=== PATIENT | male | born 1950 | race Caucasian/White ===

== ENCOUNTER 2020-05-02 11:27 | Outpatient (CLI) | payer MEDICARE, SELFPAY ==
--- NOTE | ~2020-05-02 | XR_ITS ---
EXAMINATION: XR ankle RT 2V DATE: 05/02/2020 11:54 INDICATION: Gout left ankle pain. TECHNIQUE: Anteroposterior and lateral views of the right ankle were obtained. COMPARISON: None. FINDINGS: Alignment is normal. No fracture. Joint spaces are normal. Small Achilles and plantar calcaneal spurs . Diffuse density anterior to the tibiotalar joint line suggesting the presence of a joint effusion. Approximately 6 mm lucency projecting along the medial margin of the medial malleolus which given the history of gout suspicious for an erosion. IMPRESSION: 1. Possible small erosion at the medial malleolus. Correlate for pain/tenderness at this location. 2. Likely right ankle joint effusion. Reviewed, dictated and finalized at location A. HOST IMPRESSION: 1. Possible small erosion at the medial malleolus. Correlate for pain/tendernes s at this location. 2. Likely right ankle joint effusion.
== END 2020-05-02 11:28 | disposition home or self-care (01) ==
LOC: ANHIMG 11:37
PROVIDERS: PCP Internal Medicine; Visit Provider Internal Medicine
DX: M10.9 Gout, unspecified (principal)
CPT/HCPCS: 73600

== ENCOUNTER 2023-01-15 09:53 | Outpatient (CLI) | payer MEDICARE, SELFPAY ==
--- NOTE | ~2023-01-15 | NM_ITS ---
EXAMINATION: NM dena stress w perfusion DATE: 01/15/2023 12:42 INDICATION: Abnormal electrocardiogram. TECHNIQUE: Rest images were obtained following intravenous administration of 9.2 mCi Tc99m tetrofosmi n (Myoview). The patient was infused intravenously with Lexiscan (regadenoson). Then, 28.1 mCi Tc99m tetrofosmin (Myoview) was administered intravenously, and supine and prone stress images were obtaine d. Data was reconstructed into short axis and horizontal and vertical long axis SPECT images. Gated S PECT images were also obtained. COMPARISON: None. FINDINGS: There is a moderate-sized, moderate severity, fixed perfusion defect involving left ventric ular apex, apical septal segment, mid anteroseptal segment, and mid inferoseptal segment, consistent with infarct. No reversible component to suggest ischemia. There is no segmental wall motion abnorma lity. Left ventricular ejection fraction measures >70%. IMPRESSION: 1. Moderate-sized area of moderate severity infarct involving left ventricular apex, apical septal se gment, mid anteroseptal segment, and mid inferoseptal segment. 2. Normal left ventricular ejection fraction measuring >70%. Reviewed, dictated and finalized at location A. IMPRESSION: 1. Moderate-sized area of moderate severity infarct involving left ventricular apex, apical septal segment, mid anteroseptal segment, and mid inferoseptal seg ment. 2. Normal left ventricular ejection fraction measuring >70%.
--- NOTE | 2023-01-15 11:02 | EST_ITS ---
Patient Info Name: Hermilo Delgado Age: 72 years : 1950 Gender: Male Ht: 72 in Wt: 255 lbs BSA: 2.46 m2 HR: 68 bpm BP: 142 / 88 mmHg Heart Rhythm: Left Bundle Branch Block Exam Date: 01/15/2023 11:13 AM Exam Location: [facility] Patient Status: Outpatient Admit Date: 01/15/2023 Staff Ordering Physician: Suzy Lei Attending Provider: Suzy Lei Exercise Technologist: Savi Sifuentes CT Exercise Physician: Garfield Chopra DO Exam Type: CA stress dena w NM Study Info Indications R07.9 - Chest pain, unspecified R94.31 - Abnormal electrocardiogram ECG EKG A regadenoson stress test was performed. Summary 1. 1. Inconclusive lexiscan stress test for ischemic ST changes by ECG criteria due to baseline LBBB. 2. 2. Stable hemodynamics throughout the test. 3. 3. Nuclear scan to follow and will be reported separately. Please correlate with it. 4. 4. Patient informed of the above results. Protocol: Lexiscan Stress ECG Details Stage: REST Duration (min): 1 min : 1 sec HR (bpm): 69 SBP (mmHg): 142 DBP (mmHg): 88 Stage: REST Duration (min): 12 min : 13 sec HR (bpm): 72 SBP (mmHg): 142 DBP (mmHg): 88 Stage: STAGE 1 Duration (min): 0 min : 59 sec HR (bpm): 96 SBP (mmHg): 152 DBP (mmHg): 66 Stage: RECOVERY Duration (min): 1 min : 0 sec HR (bpm): 91 SBP (mmHg): 152 DBP (mmHg): 66 Stage: RECOVERY Duration (min): 2 min : 0 sec HR (bpm): 90 SBP (mmHg): 152 DBP (mmHg): 66 Stage: RECOVERY Duration (min): 3 min : 0 sec HR (bpm): 85 SBP (mmHg): 133 DBP (mmHg): 69 Stage: RECOVERY Duration (min): 3 min : 5 sec HR (bpm): 86 SBP (mmHg): 133 DBP (mmHg): 69 Rest HR: 72 bpm Peak HR: 100 bpm Rest Sys BP: 142 mmHg Peak Sys BP: 152 mmHg Max Pred HR: 149 bpm % Max Pred HR: 67 % Target HR: 127 bpm Max RPP: 15,200 bpm*mmHg Termination Reason: Completed protocol Cardiac Symptoms: Shortness of breath Total Time: 1 min : 0 sec Rest Tuttle BP: 88 mmHg Peak Tuttle BP: 66 mmHg Total Dose: 0.4 mg Resting ECG Sinus rhythm, LBBB. Stress ECG No ST changes. Arrhythmias None. Report Signatures
== END 2023-01-15 09:54 | disposition home or self-care (01) ==
PROVIDERS: PCP Internal Medicine; Visit Provider Clinical Nurse Specialist
DX: R06.02 Shortness of breath (principal); R94.31 Abnormal electrocardiogram [ECG] [EKG]
CPT/HCPCS: 78452; 93017; A9502; J2785

== ENCOUNTER 2023-03-16 15:35 | Outpatient (CLI) | payer MEDICARE, SELFPAY ==
--- NOTE | 2023-03-16 15:41 | ECHO_ITS ---
Patient Info Name: Hermilo Delgado Age: 72 years : 1950 Gender: Male Ht: 72 in Wt: 245 lbs BSA: 2.41 m2 HR: 91 bpm BP: 157 / 93 mmHg Heart Rhythm: Sinus Rhythm Technical Quality: Fair Exam Date: 03/16/2023 3:52 PM Exam Location: [facility] Patient Status: Outpatient Admit Date: 03/16/2023 Staff Ordering Physician: Garfield Chopra DO Youth Director: Angélica Pickett RDCS Attending Provider: Garfield Chopra DO Referring Physician: Nav CAR; Exam Type: CA echo dop color flow w con Study Info Indications I44.7 - Left bundle-branch block, unspecified Complete two-dimensional, color flow and Doppler transthoracic echocardiogram is performed with contrast to opacify the left ventricle and to improve the deliniation of the left ventricle endocardial borders. Contrast/Agitated Saline Contrast/Ag. Saline: Definity Amount: 3.00 ml Administered By: Angélica Pickett RDCS Existing IV Access: No New IV Access: Left Site Condition: IV removed Summary 1. Definity contrast administered improved wall motion interpretation. 2. Left ventricular chamber dimension is normal. 3. Ventricular septum is sigmoid shaped. No LVOT obstruction. 4. Left ventricular systolic function is normal, estimated at 60-65%. 5. There is moderate concentric increased left ventricular wall thickness. 6. Left ventricular septal wall motion is abnormal with septal motion related to bundle branch block. 7. The left ventricular diastolic function is grade I diastolic dysfunction. 8. E/e' 12 is mildly elevated. 9. There is mild aortic valve sclerosis. 10. The mitral valve has moderately calcified annulus. 11. No pulmonary hypertension, estimated pulmonary arterial systolic pressure is 18 mmHg. Left Ventricle Ventricular septum is sigmoid shaped. No LVOT obstruction. E/e' 12 is mildly elevated. Definity contrast administered improved wall motion interpretation. Left ventricular chamber dimension is normal. Left ventricular systolic function is normal, estimated at 60-65%. There is moderate concentric increased left ventricular wall thickness. Left ventricular septal wall motion is abnormal with septal motion related to bundle branch block. The left ventricular diastolic function is grade I diastolic dysfunction. Right Ventricle Right ventricular systolic function is normal and with normal TAPSE 1.9 cm. Right ventricular chamber dimension is normal. Left Atria Left atrial chamber dimension is normal. Right Atria Right atrial chamber dimension is normal. Aortic Valve The aortic valve is trileaflet. There is mild aortic valve sclerosis. There is no aortic valve stenosis. There is no aortic valve regurgitation. Pulmonic Valve There is no pulmonic regurgitation. Mitral Valve The mitral valve has moderately calcified annulus. There is no mitral valve stenosis. There is no mitral valve regurgitation. Tricuspid Valve There is no tricuspid valve regurgitation. No pulmonary hypertension, estimated pulmonary arterial systolic pressure is 18 mmHg. Pericardium/Pleural There is no pericardial effusion. Inferior Vena Cava Normal inferior vena cava with >50% collapse upon inspiration consistent with normal right atrial pressure, 5 mmHg. Aorta The aortic root size at the sinus of Valsalva is normal. Left Ventricular Outflow Tract Name Value Normal
[2023-03-16] MEDS: PERFLUTREN LIPID MICROSPHERES 1.5 ML VIAL DILUTED TO 10 ML TOTAL VOLUME IV PUSH (16:08)
--- NOTE | 2023-03-16 16:09 | IVDEFINITY ---
Prior to administration of IV Definity the patient was educated on the risks and benefits of the imaging enhancing agent including potential adverse side effects. The patient verbalized understanding. Allergies were verified. No exclusion criteria were identified and at least one of the following inclusion criteria were met: 1) physician request, 2) patient technically difficult to image (per the [place] [employer]chocardi[employer] guidelines of two or more segments not discernable within the apical view), or 3) questionable left ventricular function. ?
== END 2023-03-16 15:36 | disposition home or self-care (01) ==
LOC: ANHCARD 15:37
PROVIDERS: PCP Internal Medicine; Visit Provider Internal Medicine Cardiovascular Disease
DX: I44.7 Left bundle-branch block, unspecified (principal); I08.0 Rheumatic disorders of both mitral and aortic valves
CPT/HCPCS: C8929; Q9957

== ENCOUNTER 2024-01-19 09:02 | Outpatient (CLI) | payer MEDICARE, SELFPAY ==
[2024-01-19 19:22] LABS: Basophils Absolute Auto 0.1 K/mm3 (0.0-0.1); Basophils Percent Auto 1.3 % (0.2-1.2); Eosinophils Absolute Auto 0.3 K/mm3 (0-0.3); Hematocrit 50.5 % (42.0-52.0); Hemoglobin 16.4 g/dL (14.0-18.0); Immature Granulocyte Absolute 0.04 K/mm3 (0.00-0.031); Immature Granulocyte Percent A 0.5 % (0-0.5); Lymphocytes Absolute Auto 1.85 K/mm3 (0.9-3.2); Lymphocytes Percent Auto 22.2 % (18.3-44.2); Mean Corpuscular HGB Conc 32.5 g/dl (32-36); Mean Corpuscular Hemoglobin 30.9 pg (26-34); Mean Corpuscular Volume 95.3 fl (80-100); Mean Platelet Volume 9.4 fl (7.4-10.4); Monocytes Absolute Auto 0.9 K/mm3 (0.1-0.6); Monocytes Percent Auto 11.1 % (2.6-8.5); Neutrophils Absolute Auto 5.2 K/mm3 (1.3-6.7); Neutrophils Percent Auto 61.9 % (45.5-73.1); Platelet Count Result 307 k/mm3 (150-375); Red Cell Distribution Width 13.5 % (11.5-14.5); White Blood Count 8.4 K/mm3 (4.5-10.0)
[2024-01-19 20:14] LABS: Alanine Aminotransferase 50 U/L (6-50); Albumin Level 4.7 g/dL (3.5-5.1); Alkaline Phosphatase 50 U/L (38-126); Anion Gap 13 mmol/L (4-12); Aspartate Amino Transferase 62 U/L (17-59); Bilirubin,Total 0.8 mg/dL (0.2-1.3); Blood Urea Nitrogen 15 mg/dL (9-20); Calcium 9.4 mg/dL (8.4-10.2); Carbon Dioxide 29 mmol/L (22-30); Chloride 96 mmol/L (98-107); Cholesterol 206 mg/dL (0-200); Estimated Glomerular Filt Rate > 60; Glucose 93 mg/dL (65-110); HDL Direct 33 mg/dL; Potassium 4.3 mmol/L (3.4-5.0); Sodium 138 mmol/L (137-145); Triglycerides 303 mg/dL (<150)
[2024-01-19 20:25] LABS: LDL Cholesterol Direct 112 mg/dL
== END 2024-01-19 09:03 | disposition home or self-care (01) ==
LOC: ANHGOSHLAB 09:03
PROVIDERS: PCP Internal Medicine; Visit Provider Nurse Practitioner
DX: E78.00 Pure hypercholesterolemia, unspecified (principal); I10 Essential (primary) hypertension
CPT/HCPCS: 36415; 80053; 80061; 85025

== ENCOUNTER 2024-04-05 08:30 | Day surgery (SDC) | payer MEDICARE, SELFPAY ==
[2024-03-10 12:00] VITALS: BMI 34.9
[2024-03-21 11:30] VITALS: BMI 34.7
--- NOTE | 2024-04-04 15:35 | WPDANESEPPF ---
Anes - Initial Pre Proc Eval Procedure: Operation Date: 04/05/24 10:30 Proposed Procedures p Diagnostic Colonoscopy - Denis Reed MD Date/Time: 04/04/24 15:35 Surgeon: Denis Reed MD Pre Op Diagnosis: Positive Cologuard test Patient Data Age: 73 Gender: M Height: 1.83 m Weight: 116 kg Allergies Allergy/AdvReac Type Severity Reaction Status Date / Time cefazolin Allergy Intermediate Hives Verified 04/05/24 09:07 Home Medications Medication Instructions Recorded Confirmed Type betamethasone dipropionate 0.05 % 1 applic topical BID PRN rash #45 12/01/21 04/05/24 Rx topical cream grams aspirin 81 mg tablet,delayed 81 mg PO DAILY 01/04/23 04/05/24 History release ezetimibe 10 mg tablet (Zetia) 10 mg PO DAILY #90 tabs 07/22/23 04/05/24 Rx omega 3-mdu-nig-fish oil 100 2 cap PO DAILY 02/11/24 04/05/24 History mg-160 mg-1,000 mg capsule (Fish Oil) allopurinol 300 mg tablet 300 mg PO DAILY 03/21/24 04/05/24 History cholecalciferol (vitamin D3) 25 25 mcg PO DAILY 03/21/24 04/05/24 History mcg (1,000 unit) tablet (Vitamin D3) losartan 50 mg-hydrochlorothiazide 1 tablet PO DAILY 03/21/24 04/05/24 History 12.5 mg tablet Patient hx anesthesia problems: none Family hx anesthesia problems: none Results Review: All pre-operative results and documents have been reviewed as part of the pre-operative evaluation. [facility] Past Medical History Medical History Acute bronchitis Bone erosion determined by x-ray Broken thumb 02/2021 Elevated PSA Gout HTN (hypertension) Hypercholesterolemia Hyperglycemia Low testosterone Measles Prostate cancer Surgical History Surgical History History of eyelid surgery 10/2021 Family History Family History Father Acute myocardial infarction, Onset Age: 79 Patient's father is in good health Mother , 2017 Family history of chronic obstructive pulmonary disease Patient's mother is in good health Sibling Patient's sister is in good health Social History Social History (Updated 02/11/24 @ 11:14 by Natacha Cerda [facility]) Social History: caffeine-diet coke Smoking status: Never smoker Alcohol intake: current Drinks per week: 1 Alcohol use details: occasional Substance use: never Substance use type: does not use Do You Feel Safe in your Home?: Yes Lack of Transportation: No Lack of Food: Never True Current Housing: I Have Housing Concerned About Future Housing: No Difficulty Paying Gas/Electric Bills: No Difficulty Paying for Meds: No Currently Unemployed: No Education: Don't Know Difficulty w/ Childcare or Family Care: No Living arrangements: alone Spiritual care concerns: No Anes - Eval Final PreProcedure Day of Procedure 04/04/24 15:35 Patient weight: obese Heart: regular rate and rhythm Lungs: clear to auscultation Airway: Mallampati scale class II Neurological: alert and oriented Last oral intake: >/= 8 hours ASA classification: III Emergent: no Anesthetic plan: proceed Anesthesia type and monitoring: general GIVS and standard monitoring Results Review: All pre-operative results and documents have been reviewed as part of the pre-operative evaluation. Informed Consent: The patient's anesthetic plan and its attendant risks and benefits were discussed with the patient/family/POA. Questions were solicited and answers provided to the satisfaction of the patient/family/POA.
[2024-04-05 09:10] VITALS: BP 159/95; PULSE 80; RESP 14; TEMP 36.9; O2SAT 96
[2024-04-05] MEDS: LACTATED RINGERS 1,000 ML 150 ML IV CONT (09:24)
--- NOTE | 2024-04-05 09:52 | PM.HPGS ---
History of Present Illness History of Present Illness Consent: Risks, benefits, and alternatives have been discussed and questions answered. Patient agrees to proceed with procedure. Chief complaint: Positive Cologuard test Narrative: Hermilo Delgado is a 73 year old male presents on referral for colonoscopy. Patient recently had Cologuard test that was positive. Patient reports he had a colonoscopy many years ago was unremarkable. Patient also refer is followed at [facility] for diagnosis of prostate cancer. Apparently this was diagnosed 3 years ago. Has received radiation therapy for has been performed. No old records are available for review. Patient suggest that he has been told that does not have active disease. Patient denies family history of colon cancer nor polyps. Review of Systems Review of Systems: All systems reviewed & are unremarkable except as noted in HPI and below PMFSH Past Medical History Medical History Acute bronchitis Bone erosion determined by x-ray Broken thumb 02/2021 Elevated PSA Gout HTN (hypertension) Hypercholesterolemia Hyperglycemia Low testosterone Measles Prostate cancer Surgical History Surgical History History of eyelid surgery 10/2021 Family History Family History Father Acute myocardial infarction, Onset Age: 79 Patient's father is in good health Mother , 2017 Family history of chronic obstructive pulmonary disease Patient's mother is in good health Sibling Patient's sister is in good health Social History Social History (Updated 02/11/24 @ 11:14 by Natacha Cerda CMA) Social History: caffeine-diet coke Smoking status: Never smoker Alcohol intake: current Drinks per week: 1 Alcohol use details: occasional Substance use: never Substance use type: does not use Do You Feel Safe in your Home?: Yes Lack of Transportation: No Lack of Food: Never True Current Housing: I Have Housing Concerned About Future Housing: No Difficulty Paying Gas/Electric Bills: No Difficulty Paying for Meds: No Currently Unemployed: No Education: Don't Know Difficulty w/ Childcare or Family Care: No Living arrangements: alone Spiritual care concerns: No Meds Home Medications and Allergies Home Medications Medication Instructions Recorded Confirmed Type betamethasone dipropionate 0.05 % 1 applic topical BID PRN rash #45 12/01/21 04/05/24 Rx topical cream grams aspirin 81 mg tablet,delayed 81 mg PO DAILY 01/04/23 04/05/24 History release ezetimibe 10 mg tablet (Zetia) 10 mg PO DAILY #90 tabs 07/22/23 04/05/24 Rx omega 6-tgo-tkk-fish oil 100 2 cap PO DAILY 02/11/24 04/05/24 History mg-160 mg-1,000 mg capsule (Fish Oil) allopurinol 300 mg tablet 300 mg PO DAILY 03/21/24 04/05/24 History cholecalciferol (vitamin D3) 25 25 mcg PO DAILY 03/21/24 04/05/24 History mcg (1,000 unit) tablet (Vitamin D3) losartan 50 mg-hydrochlorothiazide 1 tablet PO DAILY 03/21/24 04/05/24 History 12.5 mg tablet Allergies Allergy/AdvReac Type Severity Reaction Status Date / Time cefazolin Allergy Intermediate Hives Verified 04/05/24 09:07 Vital Signs Vital Signs - 24 hr 04/05/24 09:10 Temperature 98.4 F Pulse Rate 80 Respiratory Rate 14 Blood Pressure 159/95 H Pulse Oximetry 96 Oxygen Delivery Room Air Exam Narrative: Physical exam reveals patient to be alert. Vital signs stable. HEENT Exam is unremarkable. Patient is anicteric. Lungs are clear to auscultation and to percussion . heart is without murmur extra sounds. Abdomen bowel sounds are present soft nontender with no hepatosplenomegaly. Digital external rectal exam normal. Assessment and Plan Assessment and plan (1) Positive colorectal cancer screening using Cologuard test
[2024-04-05 11:05] VITALS: BP 153/92; PULSE 89; RESP 20; O2SAT 94
[2024-04-05 11:15] VITALS: BP 152/87; PULSE 82; RESP 20; O2SAT 93
[2024-04-05 11:25] VITALS: BP 149/85; PULSE 79; RESP 20; O2SAT 95
--- NOTE | 2024-04-05 12:54 | WPDANESPN ---
Anes - Prog Note Post-Op Date/Time: 04/05/24 12:54 Cardiovascular status: normal Respiratory status: normal Airway patency: baseline Mental status: baseline Post-Op hydration status: normal Vital Signs: Last Vital Signs Temp 36.9 C 04/05/24 09:10 Pulse 79 04/05/24 11:25 Resp 20 04/05/24 11:25 BP 149/85 H 04/05/24 11:25 Pulse Ox 95 04/05/24 11:25 O2 Del Method Room Air 04/05/24 11:25 Pain Score (VAS): 0 I/O: Intake & Output 04/04/24 04/05/24 04/05/24 23:59 07:59 15:59 Intake Total 500 Balance 500 Post-procedural complaints: none Patient Feedback: Patient satisfied with anesthetic care. Other Findings: Patient vital signs back to baseline. Patient denies nausea and vomiting. Patient's pain under control. Patient OK for discharge.
== END 2024-04-05 11:37 | disposition home or self-care (01) ==
PROVIDERS: PCP Internal Medicine; Visit Provider Internal Medicine Gastroenterology
PROC: 0DJD8ZZ Inspection of Lower Intestinal Tract, Via Natural or Artificial Opening Endoscopic (ICD-10-PCS; CPT 45378; principal; 2024-04-05 10:30)
DX: R19.5 Other fecal abnormalities (principal); K57.30 Diverticulosis of large intestine without perforation or abscess without bleeding; K64.8 Other hemorrhoids
CPT/HCPCS: 45378

== ENCOUNTER 2024-10-26 10:30 | Outpatient (CLI) | payer MEDICARE, SELFPAY ==
--- NOTE | ~2024-10-26 | XR_ITS ---
Clinical Indication: Cough PA and lateral views of the chest: Comparison: None Findings: The lungs are clear, without evidence of focal consolidation or pleural effusion. Possible COPD. Cardiomediastinal silhouette is within normal limits. Bones and soft tissues are unremarkable. Impression: Clear lungs. Possible COPD. Reviewed, dictated and finalized at location . Impression: Clear lungs. Possible COPD.
== END 2024-10-26 10:31 | disposition home or self-care (01) ==
LOC: GOSHIMG 10:30
PROVIDERS: PCP Student in an Organized Health Care Education/Training Program; Visit Provider Student in an Organized Health Care Education/Training Program
DX: R05.3 Chronic cough (principal); R91.8 Other nonspecific abnormal finding of lung field
CPT/HCPCS: 71046

== ENCOUNTER 2024-11-13 09:20 | Outpatient (CLI) | payer MEDICARE, SELFPAY ==
--- OUTSIDE RECORDS SUMMARY | 2024-11-13 09:46 | XMS_ITS | Clinical Summary ---
Author Organization [facility] Address [facility] [place] [address] Care Team Providers Care Cruise Guide Name Role Phone Unavailable Primary Care Provider Unavailabl e Social History Tobacco Use Types Packs/Day Years Used Date Smoking Tobacco: Never Assessed Sex and Gender Information Value Date Recorded Sex Assigned at Not on file Legal Sex Male 7:31 PM CDT Gender Identity Not on file Sexual Orientation Not on file Plan of Treatment Health Maintenance Due Date Last Done Comments Colorectal Cancer Screening Colonoscopy (10 Years) 1950 Hepatitis C 12/22/1969 DTaP, Tdap and Td Vaccines ( 1 - Tdap) 12/22/1970 Pneumococcal Vaccine: 50+ Ye ars (1 of 1 - PCV) 12/22/2001 Zoster Vaccines (1 of 2) 12/22/2001 COVID-19 Vaccine ( - 2023-2 5 season) 2024 RSV Immunization or 60+ Years (1 - 1-dose 75+ series) 12/22/2026 Meningococcal B Vaccine Aged Out No l onger eligible based on patient's age to complete this topic Meningococcal Vaccine Aged Out No philippe aline eligible based on patient's age to complete this topic RSV Immunizations Under 20 Months Aged Out No longer eligible based on patient's age to complete this topic
--- OUTSIDE RECORDS SUMMARY | 2024-11-13 09:46 | XMS_ITS ---
Author Organization [facility] Healthcare Address [address] [place] [address] Care Team Providers Care Coke Burner Name Role Phone PatrickDarius du DO Primary Care Provider [phone] Christian Loaiza MD PhD Unavailable [phone] Say Mccann MD Unavailable [phone] Active Problems Problem Noted Date Diagnosed Date Malignant neoplasm prostate 08/22/2020 Cancer Staging:Clinical stage from 08/22/2020:Stage IIB(cT1c, cN0, cM0, PSA: 6.4, Grade Group: 2) - Signed by Christian Loaiza MD PhD on 08/22/2020 Elevated PSA 03/30/2018 Overview (03/30/2018): Added automatically from request for surgery [id number] Current Treatment and Therapy Plans No current plan information found. Past Treatment and Therapy Plans No past plan information found. Radiation Treatments * Course C1_PROSTATE_202010/14/2020 - 11/27/2020 Treatment Period Energy Fraction Dose Fractions Total Dose Plans Planned P+PROSTATE 10/14/2020 - 11/27/2020 250 28 / 7,000 Reference Points Delivered P+PROSTATE 10/14/2020 - 11/27/2020 6,989
--- OUTSIDE RECORDS SUMMARY | 2024-11-13 09:46 | XMS_ITS | Encounter Summary ---
Author Organization [facility] Healthcare Address [address] [place] [address] Care Team Providers Care Customer Service Sales Associate Name Role Phone Darius Schumacher DO Primary Care Provider [phone] Christian Loaiza MD PhD Unavailable [phone] Say Mccann MD Unavailable [phone] Encounter Details Date Type Department Care Team (Late st Contact Info) Description 10/24/2020 Telephone [facility] Radiation Oncology [address] [facility] [place] [address] Alana Moncada, KASANDRA Social History Tobacco Use Types Packs/Day Years Used Date Smoking Tobacco: Never Smokeless Tobacco: Never Alcohol Use Standard Drinks/Week Comments Yes 0 (1 standard drink = 0.6 oz pur e alcohol) occas Sex and Gender Information Value Date Recorded Sex Assigned at Not on file Legal Sex Male 9:44 AM [employer] Gender Identity Not on file Sexual Orientation Not on file documented as of this encounter Plan of Treatment Not on file documented as of this encounter Visit Diagnoses Not on filedocumented in this encounter Care Teams Customer Service Sales Associate Relationship Specialty Start Date End Date Darius Schumacher DO PCP - General Internal Medicine 12/21/17 Christian Loaiza MD PhD [address] [facility] [place] [address] Radiation Oncologist Radiation Oncology 08/22/20 Say Mccann MD [address] [facility] [place] [address] Referring Physician Urology 08/22/20 documented as of this encounter
--- OUTSIDE RECORDS SUMMARY | 2024-11-13 09:46 | XMS_ITS | Clinical Summary ---
Author Organization [facility] Healthcare Address [address] [place] [address] Care Team Providers Care Sheriff Detective Name Role Phone Endy Darius DavalosSusan MICHELE Primary Care Provider [phone] Christian Loaiza MD PhD Unavailable [phone] Say Mccann MD Unavailable [phone] Allergies Active Allergy Reactions Criticality Noted Date Comments Cefazolin Hives Medium 04/15/2018 Medications gemfibrozil (LOPID) 600 mg tabletIndication s:hypertriglycer idemia Take 600 mg by mouth every morning Active ciprofloxacin (CIPRO) 500 mg tablet Take 1 by mouth @ 1:00p.m. The day of your biopsy 1 tablet 8 Active allopurinol (ZYLOPRIM) 100 mg tabletIndication s:prevention of acute gout attack Take 300 mg by mouth every morning 8 Active betamethasone dipropionate (DIPROLENE) 0.05 % lotionIndication s:skin rash Apply 1 application topically as needed 0 Active colchicine (COLCRYS) 0.6 mg tabletIndication s:acute gouty arthritis Take 0.6 mg by mouth as needed Active losartan-hydroCH LOROthiazide (HYZAAR) 50-12.5 mg per tabletIndication s:hypertension Take 1 tablet by mouth every morning 0 Active diclofenac sodium (VOLTAREN) 1 % gelIndications:O steoarthritis Apply 2 g topically as needed Active fluticasone propionate (FLONASE) 50 mcg/actuation nasal sprayIndications :Allergic Rhinitis Administer 1 spray into each nostril as needed for rhinitis Active tolterodine LA (DETROL LA) 2 mg 24 hr capsule TAKE 1 CAPSULE BY MOUTH DAILY. 30 capsule 1 Active tadalafiL (ADCIRCA) 10 mg tabletIndication s:Erectile Dysfunction Take 1 tablet (10 mg total) by mouth daily as needed for erectile dysfunction for up to 40 doses 10 tablet 3 1 Active mirabegron ER (MYRBETRIQ) 25 mg tablet extended release 24 hrIndications:Ur inary Urgency Take 1 tablet (25 mg total) by mouth daily 30 tablet 3 3 Active oxyBUTYnin XL (DITROPAN-XL) 10 mg 24 hr tabletIndication s:Malignant neoplasm prostate (HCC) Take 1 tablet (10 mg total) by mouth daily 30 tablet 11 4 02/25/20 25 Active Active Problems Problem Noted Date Diagnosed Date Malignant neoplasm prostate 08/22/2020 Cancer Staging:Clinical stage from 08/22/2020:Stage IIB(cT1c, cN0, cM0, PSA: 6.4, Grade Group: 2) - Signed by Christian Loaiza MD PhD on 08/22/2020 Elevated PSA 03/30/2018 Overview (03/30/2018): Added automatically from request for surgery [id number] Surgical History Surgery Date Site/Laterality Comments COLONOSCOPY 06/28/2009 - 06/27/2010 PROSTATE BIOPSY 06/28/2018 - 06/27/2019 ENUCLEATION 06/28/2010 - 06/27/2011 Left Medical History Medical History Date Comments Hypertension Urinary incontinence Erectile dysfunction Glaucoma pt denies Prostate cancer (HCC) Family History Medical History Relation Name Comments COPD Mother Anesthesia problems Neg Hx Relation Name Status Comments Mother Social History Tobacco Use Types Packs/Day Years Used Date Smoking Tobacco: Never Smokeless Tobacco: Never Tobacco Cessation:Counseling Given: Not Answered Alcohol Use Standard Drinks/Week Comments Yes 0 (1 standard drink = 0.6 oz pur e alcohol) occas Sex and Gender Information Value Date Recorded Sex Assigned at Not on file 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 Gender Identity Not on file Sexual Orientation Not on file Obstetrics History Last Filed Vital Signs Vital Sign Reading Time Taken Comments Blood Pressure 132/76 01/27/2024 10:55 AM CDT Pulse 97 01/27/2024 10:55 AM CDT Temperature 36.6 C (97.8 F) 01/27/2024 10:55 AM CDT Respiratory Rate 16 01/27/2024 10:5 5 AM CDT Oxygen Saturation 98% 01/27/2024 10: 55 AM CDT Inhaled Oxygen Concentration - - Weight 115.5 kg (254 lb 9.6 oz) 024 10:55 AM CDT Height 182.9 cm (6') 07/31/2020 8:45 AM MACHINIST MECHANIC Body Mass Index 34.53 07/31/2020 8:45 AM MACHINIST MECHANIC Plan of Treatment Health Maintenance Due Date Last Done Comments Colon Cancer Screening-Colonoscopy 1950 Depression Screening 1950 Hepatitis C Screening 1950 DTaP/Tdap/Td Vaccine (1 - Tdap) 12/22/1962 Hepatitis B Screening 12/22/1969 Well Visit 65+ 12/22/2016 Zoster Vaccine (2 of 3) 01/14/2017 11/19/2016 Pneumococcal vaccine 65+ (2 of 2 - PPSV23) 2018 2017 Fall Risk Assessment 07/31/2021 07/31/2020 Influenza Vaccine (Season Ended) 2025 03/29/2019, 03/19/2017, 03/17/2017, Additional history exists Prostate Cancer Screening-PSA Discontinued , 07/22/2023, 01/05/2023, Additional history exists Medical Devices Implanted Type Area Collar Cutter Device Identifier Shelf Expiration Date Model / Serial / Lot Eye Eye Procedures Procedure Name Priority Date/Time Associated Diagnosis Comments PSA DIAGNOSTIC Routine 01/26/2024 1:11 PM CDT Malignant neoplasm prostate (HCC) from Last 3 Months or Most Recently Relevant to Health Maintenance Results * PSA diagnostic (01/26/2024 1:11 PM CDT) Blood us Christian Loaiza MD PhD LAB BLOOD ORDERABLES F inal Result [facility] from Last 3 Months or Most Recently Relevant to Health Maintenance Insurance MEDICARE UHC MEDICARE ADVANTAGE MEDICARE COMMERCIAL GENERIC MEDICARE [facility] MEDICARE ADVANTAGE Care Teams Sheriff Detective Relationship Specialty Start Date End Date Darius Schumacher DO PCP - General Internal Medicine 12/21/17 Christian Loaiza MD PhD [address] [place] [id number] Radiation Oncologist Radiation Oncology 08/22/20 Say Mccann MD [address] [place] [address] Referring Physician Urology 08/22/20
--- OUTSIDE RECORDS SUMMARY | 2024-11-13 09:46 | XMS_ITS | Encounter Summary ---
Author Organization [facility] Healthcare Address [address] [place] [address] Care Team Providers Care Crew Director Name Role Phone Darius Schumacher DO Primary Care Provider [phone] Christian Loaiza MD PhD Unavailable [phone] Say Mccann MD Unavailable [phone] Reason for Visit * Reason Onset Date Comments Error (Erroneous Encounter) 11/05/2020 Encounter Details Date Type Department Care Team (Late st Contact Info) Description 11/05/2020 [facility] Advanced Medicine Radiation Oncology [address] [facility] [place] [address] Amanda Villar RN ERRONEOUS ENCOUNTER--DISREGARD (Primary Dx) Social History Tobacco Use Types Packs/Day Years Used Date Smoking Tobacco: Never Smokeless Tobacco: Never Alcohol Use Standard Drinks/Week Comments Yes 0 (1 standard drink = 0.6 oz pur e alcohol) occas Sex and Gender Information Value Date Recorded Sex Assigned at Not on file 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
--- OUTSIDE RECORDS SUMMARY | 2024-11-13 09:46 | XMS_ITS | Referral Summary ---
Author Organization [facility] Healthcare Address [address] [place] [address] Care Team Providers Care Harp Regulator Name Role Phone Endy Darius Vero MICHELE Primary Care Provider [phone] Christian Loaiza MD PhD Unavailable Say Mccann MD Unavailable [phone] Allergies Active Allergy Reactions Criticality Noted [...] (03/30/2018): Added automatically from request for surgery [id number] Social History Tobacco Use Types Packs/Day Years Used Date Smoking Tobacco: Never Smokeless Tobacco: Never Tobacco Cessation:Counseling Given: Not Answered Alcohol Use Standard Drinks/Week Comments Yes 0 (1 standard drink = 0.6 oz pur e alcohol) occas Sex and Gender Information Value Date Recorded Sex Assigned at Not on file 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 Gender Identity Not on file Sexual Orientation Not on file Last Filed Vital Signs Vital Sign Reading [...] Height 182.9 cm (6') 07/31/2020 8:45 AM KILN DOOR REPAIRER Body Mass Index 34.53 07/31/2020 8:45 AM KILN DOOR REPAIRER Plan of Treatment Not on file Medical Devices Implanted Type Area Drill Press Set Up Operator Radial Device Identifier Shelf Expiration Date Model / Serial / Lot Eye Eye Procedures Procedure Name Priority Date/Time Associated Diagnosis Comments PSA DIAGNOSTIC Routine 01/26/2024 1:11 PM CDT Malignant neoplasm prostate (HCC) from Last 3 Months or Most Recently Relevant to Health Maintenance Results * PSA diagnostic (01/26/2024 1:11 PM CDT) Blood Christian Loaiza MD PhD LAB BLOOD ORDERABLES F inal Result [facility] from Last 3 Months or Most Recently Relevant to Health Maintenance Insurance MEDICARE [facility] MEDICARE ADVANTAGE [facility]ICARE Address: [address] [address] [place] [address] MEDICARE COMMERCIAL GENERIC MEDICARE [facility] MEDICARE ADVANTAGE [facility] MEDICARE Address: [address] [address] Care Teams Harp Regulator Relationship Specialty Start Date End Date Darius Schumacher DO PCP - General Internal Medicine 12/21/17 Christian Loaiza MD PhD [address] [place] [address] Radiation Oncologist Radiation Oncology 08/22/20 Say Mccann MD [address] [place] [address] Referring Physician Urology 08/22/20
--- OUTSIDE RECORDS SUMMARY | 2024-11-13 09:46 | XMS_ITS | Encounter Summary ---
Author Organization [facility] Healthcare Address [address] [place] [address] Care Team Providers Care Oil Extractor Name Role Phone Darius Schumacher DO Primary Care Provider [phone] Christian Loaiza MD PhD Unavailable [phone] Say Mccann MD Unavailable Encounter Details Date Type Department Care Team (Late st Contact Info) Description 10/03/2020 Telephone [facility] Advanced Medicine Radiation Oncology [address] [facility] [place] [address] Alana Moncada, KASANDRA Social History Tobacco Use Types Packs/Day Years Used Date Smoking Tobacco: Never Smokeless Tobacco: Never Alcohol Use Standard Drinks/Week Comments Yes 0 (1 standard drink = 0.6 oz pur e alcohol) occas Sex and Gender Information Value Date Recorded Sex Assigned at Not on file 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
--- OUTSIDE RECORDS SUMMARY | 2024-11-13 09:46 | XMS_ITS | Clinical Summary ---
Author Organization [facility] Resource Data Address [address] [facility] [place] [address] Care Team Providers Care Taxation Inspector Name Role Phone Darius Schumacher DO Primary Care Provider Aniket Arita MD Unavailable [phone] Jina Nguyễn Unavailable Source Comments [facility] Resource Data,non-owned Affiliates and Associated Physician Practices is amultiple site organization consisting of ambulatory clinics and hospital sitesin [place], [place], [place] and [place]. This disclosure is being madepursuant to the Care Everywhere program and may not contain all information available regarding this patient. Last updated 18.[facility] Resource Data Allergies Active Allergy Reactions Criticality Noted Date Comments Cefazolin Urticaria Medium 04/15/2018 Medications * Be aware that medications may not be up to date on this document. Alwaysverify current medications with the patient. colchicine 0.6 MG tablet Take 1 (one) tablet by mouth every 2 hours as needed Active losartan - hydroCHLOROthiazide (HYZAAR) 50-12.5 MG tablet 03/29/20 21 Active betamethasone dipropionate (DIPROSONE) 0.05 % cream 02/26/20 21 Active allopurinol (ZYLOPRIM) 300 MG tablet 03/29/20 21 Active ezetimibe (Zetia) 10 MG tablet Take 1 (one) tablet by mouth once daily 01/16/20 23 Active aspirin (Aspirin) 81 MG chew tablet Take 1 (one) tablet by mouth once daily Active fish oil/omega-3 fatty acids (Promega;Cardi-[place] 3) 1000 MG capsule Take 1 (one) capsule by mouth 3 times daily with meals Active vitamin D3 (Cholecalciferol) 10 MCG (400 UNIT) tablet Take 1 (one) tablet by mouth once daily Active oxyBUTYnin CR 24hr (Ditropan-XL) 10 MG tablet Take 1 (one) tablet by mouth once daily 02/25/20 24 025 Active sdcmxwdm-bvzxpdcfz-igwb meth (Maxitrol) ophthalmic ointment Instill into left eye every morning 3.5 g 5 09/21/19 25 Active Active Problems Problem Noted Date Diagnosed Date 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 Blepharitis 04/11/2015 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 Encounters Date Type Department Care Team Description 09/20/2024 10:30 AM CDT Office Visit [facility] - Ophthalmology [address] [place] [phone] Elisa Jurado, FLAGSETTER-MANHOLE BUILDER Ectropion of left lower eyelid, unspecified ectropion type (Primary Dx) 09/20/2024 Travel from Last 3 Months Immunizations Immunization Administration Dates Next Due INFLUENZA VACCINE 03/29/2019 Family History Medical History Relation Name Comments None Known Mother Relation Name Status Comments Mother Social History Tobacco Use Types Packs/Day Years Used Date Smoking Tobacco: Never Smokeless Tobacco: Never Tobacco Cessation:Counseling Given: Not Answered Alcohol Use Standard Drinks/Week Comments Yes 5 (1 standard drink = 0.6 oz pur e alcohol) WEDNESDAY NIGHT Sex and Gender Information Value Date Recorded Sex Assigned at Not on file 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 Gender Identity Not on file Sexual Orientation Not on file Last Filed Vital Signs Vital Sign Reading Time Taken Comments Blood Pressure 159/86 02/07/2024 10:58 AM CDT Pulse 86 02/07/2024 10:58 AM CDT Temperature 36.4 C (97.6 F) 02/07/2024 10:48 AM CDT Respiratory Rate 18 02/07/2024 10:58 AM CDT Oxygen Saturation 95% 02/07/2024 10:58 AM CDT Inhaled Oxygen Concentration - - Weight 116.1 kg (256 lb) 02/07/2024 8:41 AM CDT Height 182.9 cm (6') 02/02/2024 2:19 PM CDT Body Mass Index 34.72 02/02/2024 2:19 PM CDT Plan of Treatment Upcoming Encounters Date Type Department Care Team (Late st Contact Info) Description 03/23/2025 9:30 AM CDT Office Visit [facility] - Ophthalmology [address] [place] [phone] Aubrey Jurado, OD [address] [place] [phone] 09/20/2025 10:00 AM CDT Office Visit [facility] - Ophthalmology [address] [place] [phone] Elisa Jurado, FLAGSETTER-MANHOLE BUILDER [address] [place] [address] [place] [phone] Health Maintenance Due Date Last Done Comments COLON MONITORING 1950 COLONOSCOPY - COLON CA SCREENING 1950 CT COLONOGRAPHY - COLON CA SCREENING 1950 FIT - COLON CA SCREENING 1950 FLEX SIG - COLON CA SCREENING 1950 LIPID TESTING 1950 HEPATITIS C SCREENING 12/18/1969 DTAP/TDAP/TD VACCINES (1 - Tdap) 12/22/1970 PNEUMOCOCCAL VACCINE 50+ (1 of 1 - PCV) 12/22/2001 ZOSTER VACCINE (1 of 2) 12/22/2001 COVID-19 VACCINE ( - 2023-2 5 season) 2024 DEPRESSION SCREENING 06/28/2024 MEDICARE AWV CALENDAR YEAR 2024 INFLUENZA VACCINE (Season Ended) 2025 03/29/20 Respiratory Syncytial Virus (RSV) Vaccine Pt: or over 60 yrs (1 - 1-dose 75+ series) 12/22/2026 COLOGUARD (AGES 45-75) - COL ON CA SCREENING 01/30/2027 01/31/2024 Colorectal Cancer Screening 01/30/2027 HEPATITIS B VACCINE Aged Out No longe r eligible based on patient's age to complete this topic HIB VACCINE Aged Out No longer eligi ble based on patient's age to complete this topic HPV VACCINE Aged Out No longer eligi ble based on patient's age to complete this topic MENINGOCOCCAL (Group B) VACC INE SHARED DECISION-MAKING Aged Out No longer eligibl e based on patient's age to complete this topic MENINGOCOCCAL GROUPS A/C/Y/W VACCINE Aged Out No longer eligible b ased on patient's age to complete this topic Medical Devices Implanted Type Area General Counsel Device Identifier Shelf Expiration Date Model / Serial / Lot Tecdorian [id number] Implanted:Qty: 1 on 02/07/2024 by Arcadio Van MD at [facility] Right: Eye [employer] 02/11/2026 [id number] / [id number] / N/A Insurance MEDICARE [employer] MANAGED MEDICARE ADV Care Teams Taxation Inspector Relationship Specialty Start Date End Date Darius Schumacher DO PCP - General 02/07/15 Aniket Arita MD [address] [place] [address] Physician Ophthalmology 03/31/18 Jina Nguyễn [address] [address] 10/29/21
--- NOTE | 2024-11-13 16:36 | WPDPFTINT ---
PFT Procedure Performed PFT Procedure Performed Spirometry with Pre/Post Bronchodilator Plethysmography (Lung Vol) Diffusing Cap (DLCO) Flow Vol Loop PFT Interpretation This is a pulmonary function test with pre and post-bronchodilator spirometry, plethysmography and diffusing capacity. The test was performed and results interpreted in accordance with the 2019 and 2005 ATS/ERS Task Force guidelines respectively using the Global Lung Function Initiative-2012 reference equations. Patient demonstrated good effort and cooperation. Reproducibility criteria were met. The quality of the pre bronchodilator spirometry maneuver was Grade A and post bronchodilator spirometry maneuver was Grade A. Findings: Spirometry: There is decreased maximal expiratory airflow at all lung volumes with concave expiratory flow tracing. The contour the inspiratory flow tracing is normal. The pre bronchodilator FVC is 3.17 L, 71% predicted. The pre bronchodilator FEV1 is 1.74 L, 52% predicted. The pre bronchodilator FEV1: FVC ratio is 55%. The post bronchodilator FVC is 3.57 L, representing a 12% increase. The post bronchodilator FEV1 is 1.96 L, representing a 13% increase. The post bronchodilator FEV1: FVC ratio is 55%. Plethysmography: The total lung capacity is 6.47 L, 87% predicted. The functional residual capacity is 3.55 L, 89% predicted. The residual volume is 2.83 L, 109% predicted. Diffusing capacity: The diffusing capacity unadjusted for hemoglobin and carboxyhemoglobin is 26.6, 100% predicted. The diffusing capacity adjusted for alveolar volume is 4.75, 126% predicted. Impression: There is a moderately severe obstructive abnormality. There is significant improvement after inhaling a single dose of albuterol. The lung volumes are normal. The diffusing capacity is normal. There are no prior studies for comparison
== END 2024-11-13 09:21 | disposition home or self-care (01) ==
PROVIDERS: PCP Internal Medicine; Visit Provider Student in an Organized Health Care Education/Training Program
DX: R05.3 Chronic cough (principal); R06.2 Wheezing; R94.2 Abnormal results of pulmonary function studies
CPT/HCPCS: 94060; 94726; 94729

== ENCOUNTER 2025-05-07 09:35 | Emergency (ER) | payer MEDICARE, SELFPAY ==
[2025-05-07] VITALS (13 sets, daily range): BP systolic 118–167; BP diastolic 77–96; PULSE 95–117; RESP 18–28; TEMP 36.8; O2SAT 88–98
--- NOTE | ~2025-05-07 | CT_ITS ---
EXAM/PROCEDURE: CT chest abdomen pelvis w con HISTORY: hypoxia (normal dimer); AMS COMPARISON: None available. TECHNIQUE: CT pulmonary arteriogram FINDINGS: Exam somewhat limited with contrast primarily in the left-sided system/aorta. No central or large pulmonary emboli. Heart size normal. No thoracic aortic aneurysm/dissection. Extensive coronary artery calcification and/or stenting. No pericardial effusion or bulky lymphadenopathy. Mild bibasilar fibrosing and atelectatic appearing changes. Within the abdomen and pelvis, the bowel gas pattern is nonobstructive with no free air free fluid or pneumatosis. Severe sigmoid diverticular disease with no discretely defined diverticulitis, abscess or perforation. There are scattered paracolonic strandy changes in the sigmoid colon which are probably chronic. Normal size appendix and aorta. No hydroureteronephrosis or gross CT evidence of acute cholecystitis or pancreatitis. Liver spleen and adrenal glands appear normal. Stomach unopacified and nondistended but no focal acute process. No bulky lymphadenopathy or masses seen. Diffuse degenerative changes throughout the bones. Urinary bladder is nondistended but no obvious acute process seen. Prostate borderline enlarged. IMPRESSION: 1. No central or large pulmonary emboli. 2. Severe diverticular disease in the sigmoid colon with no obvious acute diverticulitis; scattered pericolonic strandy changes probably chronic. Several chronic findings as above. 3. Other chronic findings as above. Reviewed, dictated and finalized at location A. Y DANCER IMPRESSION: 1. No central or large pulmonary emboli. 2. Severe diverticular disease in the sigmoid colon with no obvious acute diver ticulitis; scattered pericolonic strandy changes probably chronic. Several photoengraving helper erum findings as above. 3. Other chronic findings as above.
--- NOTE | ~2025-05-07 | XR_ITS ---
EXAMINATION: XR chest 1V portable COMPARISON: No comparisons available. HISTORY: hypoxia at dental office FINDINGS: Mild pulmonary venous congestion. No pneumothorax. Mild cardiomegaly. Mediastinal and hilar contours are within normal limits. Bony thorax no acute abnormality. Miscellaneous: None Impression: Mild CHF Reviewed, dictated and finalized at location P. TECH Impression: Mild CHF
--- NOTE | ~2025-05-07 | CT_ITS ---
EXAMINATION: CT brain wo con DATE: 05/07/2025 13:00 INDICATION: Unresponsive TECHNIQUE: Computed tomography (CT) of the head was performed without intravenous contrast. The dose-length product was 681.00 mGy-cm. COMPARISON: None FINDINGS: No large acute ischemic event. No mass, mass effect or hemorrhage seen. Mild diffuse volume loss and chronic microvascular ischemic white matter changes. Left ocular/orbital prosthesis. Moderately extensive mucoperiosteal thickening in the maxillary sinuses. Otherwise unremarkable exam. IMPRESSION: 1. No gross intracranial mass effect or hemorrhage. 2. Chronic appearing findings as above. Reviewed, dictated and finalized at location A. ALDERMAN
[2025-05-07] MEDS: NALOXONE HCL 0.4 MG/ML VIAL IV PUSH (09:45)
--- NOTE | 2025-05-07 11:53 | PC.NURSE ---
giorgi- [facility] [phone]
--- NOTE | 2025-05-07 12:06 | ECG_ITS ---
Test Date: 2025-05-07 12:22:31 Measurements Intervals [place] Rate: 96 P: 43 MA: 181 QRS: 5 QRSD: 138 T: 125 QT: 387 QTc: 491 Interpretive Statements SINUS RHYTHM LEFT BUNDLE BRANCH BLOCK [120+ ms QRS DURATION, 80+ ms Q/S IN V1/V2, 85+ ms R IN I/aVL/V5/V6] No previous ECG available for comparison Electronically Signed On 05-08-2025 18:02:38 BUSINESS SYSTEMS ARCHITECT by Guerita Johnston M.D.
--- NOTE | 2025-05-07 12:37 | ED.RECABL ---
HPI - Recheck/Abnormal Lab/Rx General Chief Complaint: Recheck/Abnormal Lab/Rx Stated Complaint: hypoxia at dental office Time Seen by Provider: 05/07/25 12:05 Source: patient (minimally able to answer questions) and RN notes reviewed Mode of arrival: EMS Limitations: altered mental status History of Present Illness HPI narrative: Patient presents after becoming hypoxic and unresponsive during a dental procedure. He had been administered fentanyl 50, triazolam 0.25 mg, Versed 2, and diphenhydramine 50. Dental procedure was not completed. It was noted that he would be able to intermittently be able to arouse but with slurred speech. EMS placed on 2L NC. Denies chest pain on my exam but not answering other questions, somnolent. Notably, a family member/caregiver had been at bedside and told RN that patient has a fake/false left eye. Related Data Home Medications ?Medication ?Instructions ?Recorded ?Confirmed ?Last Taken ?Type aspirin 81 mg tablet,delayed 81 mg PO DAILY 01/04/23 01/19/25 04/04/24 History release omega 6-urt-yrw-fish oil 100 2 cap PO DAILY 02/11/24 01/19/25 04/02/24 History mg-160 mg-1,000 mg capsule (Fish Oil) cholecalciferol (vitamin D3) 25 25 mcg PO DAILY 03/21/24 01/19/25 04/02/24 History mcg (1,000 unit) tablet (Vitamin D3) oxybutynin chloride 10 mg 10 mg PO DAILY 01/19/25 01/19/25 Unknown History tablet,extended release 24 hr Allergies Allergy/AdvReac Type Severity Reaction Status Date / Time cefazolin Allergy Intermediate Hives Verified 01/19/25 08:03 [facility] Past Medical History Medical History (Updated 05/08/25 @ 00:00 by Mira August) Eye globe prosthesis left, 2000 Broken thumb 02/2021 Prostate cancer Bone erosion determined by x-ray HTN (hypertension) Measles Acute bronchitis Gout Low testosterone Hypercholesterolemia Elevated PSA Hyperglycemia Surgical History Surgical History History of eyelid surgery 10/2021 Family History Family History Father Acute myocardial infarction, Onset Age: 79 Patient's father is in good health Mother , 2017 Family history of chronic obstructive pulmonary disease Patient's mother is in good health Sibling Patient's sister is in good health Social History Social History Social History: caffeine-diet coke Alcohol intake: current Drinks per week: 1 Alcohol use details: occasional Substance use: never Substance use type: does not use Do You Feel Safe in your Home?: Yes Lack of Transportation: No Lack of Food: Never True Current Housing: I Have Housing Concerned About Future Housing: No Difficulty Paying Gas/Electric Bills: No Difficulty Paying for Meds: No Currently Unemployed: No Education: Don't Know Difficulty w/ Childcare or Family Care: No Living arrangements: alone Spiritual care concerns: No Exam Narrative: GENERAL: well-nourished, and in no acute distress. No grimace/furrowed brow HEAD: Normocephalic, atraumatic. EYES: Non injected, non icteric. Right eye reactive and with some meandering movements. Left eye unreactive (false/fake/prosthetic by report) ENT: Nares clear, no rhinorrhea or epistaxis. Gross auditory acuity intact. CHEST: Non labored. No respiratory distress. Protecting airway. NC in place. HEART: Regular rate and rhythm. . ABDOMEN: Soft, nondistended. Not peritoneal EXTREMITIES:1+ bilateral lower extremity edema. SKIN: Warm, dry, no rash. NEURO: Arouses to sternal rub but only Answering some questions. Course Vital Signs Vital signs: Vital Signs Temperature 98.2 F 05/07/25 09:33 Pulse Rate 101 H 05/07/25 09:33 Respiratory Rate 25 H 05/07/25 09:33 Blood Pressure 137/92 H 05/07/25 09:33 Pulse Oximetry 92 05/07/25 09:33 Oxygen Delivery Room Air 05/07/25 09:33 Temperature 98.2 F 05/07/25 09:33 Pulse Rate 117 H 05/07/25 15:37 Respiratory Rate 28 H 05/07/25 15:37 Blood Pressure 167/91 H 05/07/25 15:37 Pulse Oximetry 96 05/07/25 15:37 Oxygen Delivery Room Air 05/07/25 15:37 Oxygen Flow Rate 2 05/07/25 09:41 MDM - Recheck/Abnormal Lab/Rx MDM Narrative Medical decision making narrative: Patient report becoming unresponsive during dental procedure in which he has been administered 50 Fentanyl, triazolam 0.25 mg, Versed 2 Benadryl 50. In the emergency department he is afebrile with vital signs notable for tachypnea, mild tachycardia, and hypoxia requiring L nasal cannula with some improvement. Blood pressure is acceptable. 0.4 mg IV Narcan had been administered by RN report with no change. CBC with mild abnormalities on the differential but without anemia thrombocytopenia, leukocytosis. Mild CHF on CXR; BNP pending. D-dimer within normal limits. Viral swab negative. Mild hyponatremia, a 6mEq drop from previous. BNP without evidence of heart failure. Troponin within normal limits. Urinalysis unremarkable. Patient reassessed at 3:10 p.m. and he is more alert oriented. He is seated upright and following commands. He thought he was still at the dentist. Informed him of what happened and he said, well, they doped me up. O2 downtitrated to 1LPM and maintains saturation then taken off. However, then he desaturates when falls asleep again, placed back on 1LPM. Will continue to monitor. Noted to be tachycardic in the 120s-130s. 1L IV fluids ordered and EKG. TSH normal. It does improve quickly to 100s. He has been taken off of supplemental O2 and maintaining SpO2. At this time he is stable for discharge. Differential Diagnosis Differential diagnosis: Likely other (Medications affect, stroke , heart failure, ACS, pneumonia, COPD, acute viral syndrome) Lab Data Attestation: I reviewed the patient's lab results. 05/07/25 12:43 05/07/25 13:27 Labs: Lab Results 05/07/25 05/07/25 05/07/25 Range/Units 12:43 13:27 14:01 WBC 8.1 (4.5-10.0) K/mm3 RBC 5.34 (4.6-6.20) M/mm3 Hgb 16.2 (14.0-18.0) g/dL Hct 49.1 (42.0-52.0) % MCV 91.9 (80-100) fl MCH 30.3 (26-34) pg MCHC 33.0 (32-36) g/dl RDW 13.4 (11.5-14.5) % Plt Count 260 (150-375) k/mm3 MPV 8.6 (7.4-10.4) fl Immature Gran % (Auto) 0.6 H (0-0.5) % Neut % (Auto) 72.8 (45.5-73.1) % Lymph % (Auto) 13.2 L (18.3-44.2) % Waller % (Auto) 10.4 H (2.6-8.5) % Eos % (Auto) 2.1 (0-4.4) % Baso % (Auto) 0.9 (0.2-1.2) % Lymph # (Auto) 1.06 (0.9-3.2) K/mm3 Waller # (Auto) 0.8 H (0.1-0.6) K/mm3 Eos # (Auto) 0.2 (0-0.3) K/mm3 Baso # (Auto) 0.1 (0.0-0.1) K/mm3 Abs Immat Gran (auto) 0.05 H (0.00-0.031) K/mm3 Absolute Neuts (auto) 5.9 (1.3-6.7) K/mm3 Absolute Nucleated RBC 0.000 (0.0-0.012) K/mm3 Nucleated RBC % 0.0 (0.0-0.2) % D-Dimer < 0.27 (<0.48) ug/mL Sodium 133 L (137-145) mmol/L Potassium 4.6 (3.4-5.0) mmol/L Chloride 100 (98-107) mmol/L Carbon Dioxide 27 (22-30) mmol/L Anion Gap 6 (4-12) mmol/L BUN 10 D (9-20) mg/dL Creatinine 0.91 (0.7-1.3) mg/dL Estim Creat Clear Calc 83 ml/min Estimated GFR > 60 (59 - ) Glucose 98 (65-110) mg/dL Calcium 9.0 (8.4-10.2) mg/dL Total Bilirubin 0.7 (0.2-1.3) mg/dL AST 47 (17-59) U/L ALT 45 (6-50) U/L Alkaline Phosphatase 42 (38-126) U/L Total Creatine Kinase 60 (55-170) U/L Troponin I 0.014 (0.000-0.034) ng/mL NT-Pro-B Natriuret Pep 107 H (19.9-100) pg/mL Total Protein 7.5 (6.3-8.2) g/dL Albumin 4.3 (3.5-5.1) g/dL TSH 1.800 (0.465-4.680) uIU/mL Urine Color Yellow (Yellow) Urine Appearance Clear (Clear) Urine pH 6.0 (5.0-9.0) Ur Specific Lohn 1.017 (1.001-1.035) Urine Protein Negative (Negative) mg/dL Urine Glucose (UA) Negative (Negative) mg/dL Urine Ketones Negative (Negative) mg/dL Ur Blood (Man) Negative (Negative) Urine Nitrate Negative (Negative) Urine Bilirubin Negative (Negative) Urine Urobilinogen 0.2 (<2.0) mg/dL Leukocyte Esterase Rfl Negative (Negative) ROGELIO/UL Salicylates < 1.0 L (2-20) mg/dL Acetaminophen < 10 L (10-30) ug/mL Influenza A (RT-PCR) Negative (Negative) Influenza B (RT-PCR) Negative (Negative) RSV (RT-PCR) Negative (Negative) SARS-CoV-2 RNA (RT-PCR) Negative (Negative) Imaging Data Radiologist's impression: Impressions Chest X-Ray 05/07/25 12:40 Impression: Mild CHF Head CT 05/07/25 13:03 IMPRESSION: 1. No gross intracranial mass effect or hemorrhage. 2. Chronic appearing findings as above. Chest/Abdomen/Pelvis CT 05/07/25 14:42 IMPRESSION: 1. No central or large pulmonary emboli. 2. Severe diverticular disease in the sigmoid colon with no obvious acute diverticulitis; scattered pericolonic strandy changes probably chronic. Several chronic findings as above. 3. Other chronic findings as above. ECG Data EKG #1: Attestation: I personally reviewed and interpreted this ECG as follows: ECG completion date: 05/07/25 ECG completion time: 12:22 Prior ECG tracings: available for review (December 2022 EKG showed some depression in V6, less so in V5; not present in V4) Interpretation: Normal sinus rhythm at a rate of 96 beats per minute. [place] interval 181. QRS 138. QT/QTC 387/491. Good R-wave progression across the precordial leads. No T-wave inversions. There does appear to be some ST depression in precordial leads V4 V5 V6. Left bundle-branch block with QRS duration greater than 120 milliseconds, dominant S-wave in V1, broad monophasic R-wave in lateral leads (1, aVL, V5-V6), absence of Q-waves in lateral leads. EKG #2: Attestation: I personally reviewed and interpreted this ECG as follows: ECG completion date: 05/07/25 ECG completion time: 15:40 Interpretation: Sinus tachycardia at a rate of 109 beats per minute. Left bundle-branch block with QRS duration greater than 120 milliseconds, dominant S-wave in V1, broad monophasic R-wave in lateral leads (1, aVL, V5-V6), absence of Q-waves in lateral leads. NY interval 168. QRS 139. QT/QTC 371/502. Good R-wave progression precordial leads. No T-wave inversion. Discharge Plan Discharge Clinical Impression: Hypoxia, Acute alteration in mental status, Hyponatremia, Sigmoid diverticulosis Patient Disposition: Home Condition: Stable Instructions: Antibiotic Form, Diverticulosis (ED), Hyponatremia (ED), Altered Mental Status (ED), Hypoxia (ED) Additional Instructions: Your oxygen saturation dropped and he became unconscious , likely due to the medications received in dental clinic. Your workup has otherwise been reassuring and you are no longer requiring supplemental oxygen. Follow-up with your primary care provider. Return to the emergency department any new or worsening symptoms. Patient Language: Maltese Prescriptions: No Action aspirin 81 mg tablet,delayed release (DR/EC) 81 mg PO DAILY Fish Oil 100-160-1,000 mg capsule 2 cap PO DAILY Rx Instructions: Take 2 gm BID oxybutynin chloride 10 mg tablet extended release 24hr 10 mg PO DAILY betamethasone dipropionate 0.05 % cream 1 applic TOPICAL BID PRN (Reason: rash) Qty: 45 2RF losartan-hydrochlorothiazide 50-12.5 mg tablet 1 tablet PO DAILY Qty: 90 1RF ezetimibe [Zetia] 10 mg tablet 10 mg PO DAILY Qty: 90 1RF allopurinol 300 mg tablet See Rx Instructions .ROUTE .COMPLEX Qty: 90 1RF Dose Instruction: TAKE 1 TABLET BY MOUTH EVERY DAY Rx Instructions: TAKE 1 TABLET BY MOUTH EVERY DAY cholecalciferol (vitamin D3) [Vitamin D3] 25 mcg (1,000 unit) Tablet 25 mcg PO DAILY Follow-up/Referrals: Nan Schmitt APRN [Primary Care Provider, Internal Medicine] Stand Alone Forms: Work/School Release IP Time of Disposition: 16:15
--- OUTSIDE RECORDS SUMMARY | 2025-05-07 12:38 | XMS_ITS | Encounter Summary ---
Author Organization [facility] Healthcare Address [address] [place] [address] Care Team Providers Care Health Claims Examiner Name Role Phone Darius Schumacher DO Primary Care Provider [phone] Christian Loaiza MD PhD Unavailable [phone] Say Mccann MD Unavailable [phone] Encounter Details Date Type Department Care Team (Late st Contact Info) Description 10/03/2020 Telephone [facility] Advanced Medicine Radiation Oncology [address] [facility] [place] [address] Alana Moncada, KASANDRA Social History Tobacco Use Types Packs/Day Years Used Date Smoking Tobacco: Never Smokeless Tobacco: Never Alcohol Use Standard Drinks/Week Comments Yes 0 (1 standard drink = 0.6 oz pur e alcohol) occas Sex and Gender Information Value Date Recorded Sex Assigned at Not on file 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
--- OUTSIDE RECORDS SUMMARY | 2025-05-07 12:38 | XMS_ITS | Clinical Summary ---
Author Organization [facility] Address [address] [facility] [place] [address] Care Team Providers Care Shorer Name Role Phone Darius Schumacher DO Primary Care Provider Aniket Arita MD Unavailable [phone] Jina Nguyễn Unavailable Source Comments [facility],non-owned Affiliates and Associated Physician Practices is amultiple site organization consisting of ambulatory clinics and hospital sitesin [place] and [place]. This disclosure is being madepursuant to the Care Everywhere program and may not contain all information available regarding this patient. Last updated 18.[facility] Allergies Active Allergy Reactions Criticality Noted Date [...] once daily Active fish oil/omega-3 fatty acids (Promega;[facility] 3) 1000 MG capsule Take 1 (one) capsule by mouth 3 times daily with meals Active vitamin D3 (Cholecalciferol) 10 MCG (400 UNIT) tablet Take 1 (one) tablet by mouth once daily Active oxyBUTYnin CR 24hr (Ditropan-XL) 10 MG tablet Take 1 (one) tablet by mouth once daily 02/25/20 24 Active keajitee-mzgbzscee-sfil meth (Maxitrol) ophthalmic ointment Instill into left eye every morning 3.5 g 5 09/21/19 25 Active Active Problems Problem Noted Date Diagnosed Date 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 Blepharitis 04/11/2015 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 Encounters Date Type Department Care Team Description 03/23/2025 9:30 AM CDT Office Visit [facility] - Ophthalmology [address] [place] [address] [phone] Aubrey Jurado OD Pseudophakia (Primary Dx); Refractive error; Floppy eyelid syndrome; Acquired absence of eye 03/23/2025 Travel from Last 3 Months Immunizations Immunization [...] on file 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 Gender Identity Not on file Sexual [...] Care Team (Late st Contact Info) Description 09/20/2025 10:00 AM CDT Office Visit [facility] - Ophthalmology [address] [place] [phone] Elisa Jurado, R D INTERNSHIP-FASHION CONSULTANT [address] [place] [address] [place] [phone] 03/25/2026 9:00 AM CDT Office Visit [facility] - Ophthalmology [address] [place] [phone] Aubrey Jurado OD [address] [place] [phone] Health Maintenance Due Date Last Done Comments [...] 12/22/2001 ZOSTER VACCINE (1 of 2) 12/22/2001 DEPRESSION SCREENING 06/28/2024 MEDICARE AWV CALENDAR YEAR 2024 COVID-19 VACCINE (2024- season) 2025 12/02/2021, 04/21/2021, 09/17/2020, Additional history exists INFLUENZA VACCINE (#1) 2025 9, 03/19/2017, 03/17/2017, Additional history exists Respiratory Syncytial Virus (RSV) Vaccine Pt: or over 60 yrs (1 - 1-dose 75+ series) 12/22/2026 COLOGUARD (AGES 45-75) - COLON CA SCREENING 01/30/2027 01/31/2024 Colorectal Cancer Screening 01/30/2027 HEPATITIS B VACCINE Aged Out No longe r eligible based on patient's age to complete this topic HIB VACCINE Aged Out No longer eligi ble based on patient's age to complete this topic HPV VACCINE Aged Out No longer eligi ble based on patient's age to complete this topic MENINGOCOCCAL (Group B) VACCINE SHARED DECISION-MAKING Aged Out No longer eligible based on patient's age to complete this topic MENINGOCOCCAL GROUPS A/C/Y/W VACCINE Aged Out No longer eligible based on patient's age to complete this topic Medical Devices Implanted Type Area Criminal Attorney Device Identifier Shelf Expiration Date Model / Serial / Lot Tecnis [id number] Implanted:Qty: 1 on 02/07/2024 by Arcadio Van MD at [facility] Right: Eye [employer] 02/11/2026 [id number] / [id number] / N/A Insurance MEDICARE [employer] MANAGED MEDICARE ADV Care Teams Shorer Relationship Specialty Start Date End Date Darius Schumacher DO PCP - General 02/07/15 Aniket Arita MD [address] [place] [phone] Physician Ophthalmology 03/31/18 Jina Nguyễn [address] [address] 10/29/21
--- OUTSIDE RECORDS SUMMARY | 2025-05-07 12:38 | XMS_ITS | Clinical Summary ---
Author Organization [facility] Healthcare Address [address] [place] [address] Care Team Providers Care Food Cashier Name Role Phone Endy Darius DavalosSusan Primary Care Provider [phone] Christian Loaiza MD PhD Unavailable [phone] Say Mccann MD Unavailable [phone] Allergies Active Allergy Reactions Criticality Noted [...] 24 hr tabletIndication s:Malignant neoplasm prostate (HCC) TAKE 1 TABLET BY MOUTH EVERY DAY 90 tablet 3 5 Active Active Problems Problem Noted Date Diagnosed Date Malignant neoplasm prostate 08/22/2020 Cancer Staging:Clinical stage from 08/22/2020:Stage IIB(cT1c, cN0, cM0, PSA: 6.4, Grade Group: 2) - Signed by Christian Loaiza MD PhD on 08/22/2020 Elevated PSA 03/30/2018 Overview (03/30/2018): Added automatically from request for surgery [id number] Surgical History Surgery Date Site/Laterality Comments COLONOSCOPY [...] on file 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 Gender Identity Not on file Sexual Orientation [...] Height 182.9 cm (6') 07/31/2020 8:45 AM STRIP CATCHER Body Mass Index 34.53 07/31/2020 8:45 AM STRIP CATCHER Plan of Treatment Health Maintenance Due Date Last Done Comments Colon Cancer Screening-Colonoscopy 1950 Depression Screening 1950 Hepatitis C Screening 1950 DTaP/Tdap/Td Vaccine (1 - Tdap) 12/22/1962 Hepatitis B Screening 12/22/1969 Well Visit 65+ 12/22/2016 Zoster Vaccine (2 of 3) 01/14/2017 11/19/2016 Pneumococcal vaccine 65+ (2 of 2 - PCV20 or PCV21) 2018 2017 Fall Risk Assessment 07/31/2021 07/31/2020 Influenza Vaccine (#1) 2025 9, 03/19/2017, 03/17/2017, Additional history exists Prostate Cancer Screening-PSA Discontinued , 01/26/2024, 07/22/2023, Additional history exists Medical Devices Implanted Type Area Talent Specialist Device Identifier Shelf Expiration Date Model / Serial / Lot Eye Eye Procedures Procedure Name Priority Date/Time Associated Diagnosis Comments PSA DIAGNOSTIC Routine 12/29/2024 12:41 PM CDT Malignant neoplasm prostate (HCC) from Last 3 Months or Most Recently Relevant to Health Maintenance Results * PSA diagnostic (12/29/2024 12:41 PM CDT) Blood us Christian Loaiza MD PhD LAB BLOOD ORDERABLES F inal Result [facility] from Last 3 Months or Most Recently Relevant to Health Maintenance Insurance MEDICARE [facility] MEDICARE ADVANTAGE MEDICARE [place] [address] [place] [address] MEDICARE [facility] MEDICARE ADVANTAGE Care Teams Food Cashier Relationship Specialty Start Date End Date Darius Schumacher DO PCP - General Internal Medicine 12/21/17 Christian Loaiza MD PhD [address] [place] [address] Radiation Oncologist Radiation Oncology 08/22/20 Sya Mccann MD [address] [place] [address] Referring Physician Urology 08/22/20
--- OUTSIDE RECORDS SUMMARY | 2025-05-07 12:38 | XMS_ITS ---
Author Organization [facility] Healthcare Address [address] [place] [address] Care Team Providers Care Content Designer Name Role Phone Darius Schumacher DO Primary Care Provider [phone] Christian Loaiza MD PhD Unavailable [phone] Say Mccann MD Unavailable [phone] Active Problems Problem Noted Date Diagnosed Date Malignant neoplasm prostate 08/22/2020 Cancer Staging:Clinical stage from 08/22/2020:Stage IIB(cT1c, cN0, cM0, PSA: 6.4, Grade Group: 2) - Signed by Christian Loaiza MD PhD on 08/22/2020 Elevated PSA 03/30/2018 Overview (03/30/2018): Added automatically from request for surgery [id number] Current Treatment and Therapy Plans No current plan information found. Past Treatment and Therapy Plans No past plan information found. Radiation Treatments * Course C1_PROSTATE_202010/14/2020 - 11/27/2020 Treatment Period Energy Fraction Dose Fractions Total Dose Plans Planned P+PROSTATE 10/14/2020 - 11/27/2020 250 28 / 7,000 Reference Points Delivered P+PROSTATE 10/14/2020 - 11/27/2020 6,989
--- OUTSIDE RECORDS SUMMARY | 2025-05-07 12:38 | XMS_ITS | Encounter Summary ---
Author Organization [facility] Healthcare Address [address] [place] [address] Care Team Providers Care Cement Car Dumper Name Role Phone PatrickDarius du DO Primary Care Provider [phone] Christian Loaiza MD PhD Unavailable [phone] Say Mccann MD Unavailable [phone] Reason for Visit * Reason Onset Date Comments Error (Erroneous Encounter) 11/05/2020 Encounter Details Date Type Department Care Team (Late st Contact Info) Description 11/05/[address] 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 Gender Identity Not on file Sexual Orientation Not on file documented as of this encounter Functional Status * BP Location Answer Date of Assessment Author Right arm 11/05/2020 12:12 PM CDT Shelia Finley RN * BP Location Answer Date of Assessment Author Right arm 11/05/2020 12:12 PM CDT Quan-H olmes, Shelia A., RN documented as of this encounter Plan of Treatment Not on file documented as of this encounter Visit Diagnoses Diagnosis ERRONEOUS ENCOUNTER--DISREGARD- Primary documented in this encounter Care Teams Cement Car Dumper Relationship Specialty Start Date End Date Darius Schumacher DO PCP - General Internal Medicine 12/21/17 Christian Loaiza MD PhD [address] [place] [address] Radiation Oncologist Radiation Oncology 08/22/20 aSy Mccann MD [address] [place] [address] Referring Physician Urology 08/22/20 documented as of this encounter
--- OUTSIDE RECORDS SUMMARY | 2025-05-07 12:38 | XMS_ITS | Clinical Summary ---
Author Organization [facility] Address [facility]ly [facility] [place] [address] Care Team Providers Care Detail Drafter Name Role Phone Unavailable Primary Care Provider [...] Vaccines (1 of 2) 12/22/2001 COVID-19 Vaccine (1 - 2024-2 6 season) 2025 Influenza Adult (#1) 2025 RSV Immunization or 60+ Years (1 - 1-dose 75+ series) 12/22/2026 Hepatitis A Vaccines Aged Out No long er eligible based on patient's age to complete this topic Meningococcal B Vaccine Aged Out No l onger eligible based on patient's age to complete this topic Meningococcal Vaccine Aged Out No philippe aline eligible based on patient's age to complete this topic RSV Immunizations Under 20 Months Aged Out No longer eligible based on patient's age to complete this topic
--- OUTSIDE RECORDS SUMMARY | 2025-05-07 12:38 | XMS_ITS | Encounter Summary ---
Author Organization [facility] Healthcare Address [address] [place] [address] Care Team Providers Care Parker Name Role Phone Darius Schumacher DO Primary Care Provider [phone]- [phone] Christian Loaiza MD PhD Unavailable [phone] Say Mccann MD Unavailable [phone] Encounter Details Date Type Department Care Team (Late st Contact Info) Description 10/24/2020 Telephone [facility] Advanced Medicine Radiation Oncology [address] [facility] [place] [address] Alana Moncada, KASANDRA Social History Tobacco Use Types Packs/Day Years Used Date Smoking Tobacco: Never Smokeless Tobacco: Never Alcohol Use Standard Drinks/Week Comments Yes 0 (1 standard drink = 0.6 oz pur e alcohol) occas Sex and Gender Information Value Date Recorded Sex Assigned at Not on file 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
[2025-05-07 12:48] LABS: Hematocrit 49.1 % (42.0-52.0); Hemoglobin 16.2 g/dL (14.0-18.0); Immature Granulocyte Percent A 0.6 % (0-0.5); Lymphocytes Absolute Auto 1.06 K/mm3 (0.9-3.2); Mean Corpuscular HGB Conc 33.0 g/dl (32-36); Mean Corpuscular Hemoglobin 30.3 pg (26-34); Mean Corpuscular Volume 91.9 fl (80-100); Nucleated Red Blood Cells Absolute Auto 0.000 K/mm3 (0.0-0.012); Nucleated Red Blood Cells Perc 0.0 % (0.0-0.2); Platelet Count Result 260 k/mm3 (150-375); Red Blood Count 5.34 M/mm3 (4.6-6.20); White Blood Count 8.1 K/mm3 (4.5-10.0)
[2025-05-07 13:26] LABS: Influenza A QL RT-PCR Negative (Negative); Influenza B QL RT-PCR Negative (Negative); RSV RNA, RT-PCR Negative (Negative); SARS-CoV-2 RNA PCR Negative (Negative)
[2025-05-07 14:03] LABS: Alanine Aminotransferase 45 U/L (6-50); Albumin Level 4.3 g/dL (3.5-5.1); Alkaline Phosphatase 42 U/L (38-126); Anion Gap 6 mmol/L (4-12); Aspartate Amino Transferase 47 U/L (17-59); Bilirubin,Total 0.7 mg/dL (0.2-1.3); Blood Urea Nitrogen 10 mg/dL (9-20); Calcium 9.0 mg/dL (8.4-10.2); Carbon Dioxide 27 mmol/L (22-30); Chloride 100 mmol/L (98-107); Estimated CRCL calculation 83 ml/min; Estimated Glomerular Filt Rate > 60; Glucose 98 mg/dL (65-110); NT Pro B Type Natriuretic Pept 107 pg/mL (19.9-100); Potassium 4.6 mmol/L (3.4-5.0); Sodium 133 mmol/L (137-145); Total Protein 7.5 g/dL (6.3-8.2); Troponin I 0.014 ng/mL (0.000-0.034)
[2025-05-07 14:16] LABS: Add Urine Microscopic? NO; Appearance Urine Clear (Clear); Glucose Urine UA Negative (Negative); Leukocyte Esterase Ur Negative LEU/UL (Negative); Nitrate Urine Negative (Negative); Specific Grav Ur 1.017 (1.001-1.035)
[2025-05-07 14:32] LABS: Creatine Kinase 60 U/L (55-170)
[2025-05-07 14:35] LABS: Acetaminophen < 10 ug/mL (10-30); Salicylate < 1.0 mg/dL (2-20)
[2025-05-07 15:04] LABS: Thyroid Stimulating Hormone 1.800 uIU/mL (0.465-4.680)
--- NOTE | 2025-05-07 15:34 | ECG_ITS ---
Test Date: 2025-05-07 15:40:05 Measurements Intervals [place] Rate: 109 P: 43 UT: 168 QRS: 9 QRSD: 139 T: 123 QT: 371 QTc: 502 Interpretive Statements SINUS TACHYCARDIA LEFT BUNDLE BRANCH BLOCK [120+ ms QRS DURATION, 80+ ms Q/S IN V1/V2, 85+ ms R IN I/aVL/V5/V6] Compared to ECG 05/07/2025 12:22:31 no changes Electronically Signed On 05-08-2025 17:59:52 TREE TRIMMING SUPERVISOR by Guerita Johnston M.D.
[2025-05-07] MEDS: SODIUM CHLORIDE 0.9% IV 1,000 ML 999 ML IV CONT (15:44)
== END 2025-05-07 16:43 | disposition home or self-care (01) ==
PROVIDERS: Emergency Provider Student in an Organized Health Care Education/Training Program; PCP Nurse Practitioner
DX: R09.02 Hypoxemia (principal); R41.82 Altered mental status, unspecified; E87.1 Hypo-osmolality and hyponatremia; K57.30 Diverticulosis of large intestine without perforation or abscess without bleeding; R00.0 Tachycardia, unspecified; E78.5 Hyperlipidemia, unspecified; I11.0 Hypertensive heart disease with heart failure; I50.9 Heart failure, unspecified; Z20.822 Contact with and (suspected) exposure to COVID-19
CPT/HCPCS: 36415; 70450; 71045; 71260; 74177; 80053; 80143; 80179; 81003; 82550; 83880; 84443; 84484; 85025; 85380; 87637; 93005; 96361; 96374; 99284; J2312; J7030; Q9967